=== PATIENT | female | born 1960 | race Caucasian/White ===

== ENCOUNTER 2024-06-28 13:34 | Emergency (ER) | payer MEDICARE, OTHER ==
[2024-06-28] MEDS ORDERED: Diphtheria,Pertussis(Acell),Tetanus Vaccine 0.5 ML Syringe IM ONE (13:56)
== END 2024-06-28 14:25 | disposition home or self-care (01) ==
LOC: VM.ED 13:34
DX: S61.211A Laceration without foreign body of left index finger without damage to nail, initial encounter (principal); W26.8XXA Contact with other sharp object(s), not elsewhere classified, initial encounter
CPT/HCPCS: 99282